=== PATIENT | female | born 1945 | race Caucasian/White ===

== ENCOUNTER 2021-02-20 13:18 | Outpatient (REF) | payer MEDICARE, SELFPAY ==
--- NOTE | ~2021-02-20 | MM_ITS ---
EXAMINATION: MM SCREENING DIGITAL BREAST TOMOSYNTHESIS, BILATERAL CLINICAL INFORMATION: Screening. Asymptomatic. The lifetime risk of breast cancer based on the Tyrer-Cuzick Model is 2%. COMPARISON: Mammography: 01/21/2020, and prior exams dating back to 08/03/2013 TECHNIQUE: Digital breast tomosynthesis is performed in both the craniocaudal and mediolateral oblique views along with computer-aided detection (CAD). Synthesized 2D images are generated from the tomosynthesis. FINDINGS: There are scattered areas of fibroglandular density (ACR BI-RADS breast composition Category b). There is no developing density or interval mass or architectural abnormality. Parenchymal asymmetries upper and outer left breast are similar to prior exams. There are scattered bilateral round and probable dermal calcifications again seen. The axilla are unremarkable. MM/MM tomosynthesis screening BI IMPRESSION: No significant changes from prior exams. ASSESSMENT: BI-RADS 2: Benign RECOMMENDATION: Routine annual mammography screening. This patient's information was entered into a reminder system with a target due date for their next mammogram.
== END 2021-02-20 13:19 | disposition home or self-care (01) ==
LOC: HO.MAMMO 13:18
PROVIDERS: PCP Registered Nurse; Visit Provider Registered Nurse
DX: Z12.31 Encounter for screening mammogram for malignant neoplasm of breast (principal)
CPT/HCPCS: 77063; 77067

== ENCOUNTER 2021-07-17 10:52 | Outpatient (REF) | payer MEDICARE, SELFPAY ==
--- NOTE | ~2021-07-17 | MM_ITS ---
EXAMINATION: BONE DENSITOMETRY CLINICAL INDICATION: Menopausal state. COMPARISON: Baseline BD dated 01/03/2019. TECHNIQUE: Using a [employer] DXA System (software version: 13.1) manufactured by [employer], dual-energy x-ray absorptiometry was performed of the lumbar spine and left hip. The images are of good technical quality. Summary results are attached. FINDINGS: AP SPINE L1-L4: Current: BMD 1.097 g/cm2, Z-score 0.9, T-score -0.7, normal, 3.8% increase from baseline (<5% change is not significant). Baseline: BMD 1.057 g/cm2. LEFT FEMUR, NECK: Current: BMD 0.717 g/cm2, Z-score -0.4, T-score -2.3, osteopenia. Baseline: BMD 0.703 g/cm2. LEFT FEMUR, TOTAL: Current: BMD 0.724 g/cm2, Z-score -0.5, T-score -2.2, osteopenia, 1.9% decrease from baseline (<5% change is not significant). Baseline: BMD 0.738 g/cm2. IDENTIFIED RISK FACTORS: Menopause. HISTORY OF FRACTURE: None listed. MEDICATIONS: Calcium supplements or multivitamin, vitamin D. MM/XR DEXA axial skeleton IMPRESSION: 1. DIAGNOSIS: Osteopenia based on the lowest T-score value of -2.3 in the femoral neck applying World Health Organization criteria. 2. 10-YEAR FRACTURE RISK PREDICTION, FRAX: Major osteoporotic fracture (clinical spine, forearm, hip or shoulder) 15.9%. Hip fracture 4.9%. 3. Treatment Recommendations: NOF guidelines recommend consideration for treatment in postmenopausal women and men age 50 and older presenting with the following: -A hip or vertebral (clinical or morphometric) fracture. -T-score less than or equal to -2.5 at the femoral neck or spine after appropriate evaluation to exclude secondary causes. -Low bone mass at the hip or spine and a 10-year fracture probability by FRAX of greater than or equal to 3% for hip fracture or greater than or equal to 20% for major osteoporotic fracture based on the [place] adapted WHO algorithm. 4. Other Recommendations: All treatment decisions require clinical judgment and consideration of individual patient factors, including patient preferences, comorbidities, previous drug use, risk factors not captured in the FRAX model (e.g. frailty, falls, vitamin D deficiency, increased bone turnover, interval significant decline in bone density) and possible under or overestimation of fracture risk by FRAX. Additional medical evaluation for secondary cause of low bone mineral density may be appropriate. FUTURE SCAN RECOMMENDATION: People with diagnosed cases of osteoporosis or at high risk for fracture should have regular bone mineral density tests. For patients eligible for Medicare, routine testing is allowed once every 2 years. The testing frequency can be increased to one year for patients who have rapidly progressing disease, those who are receiving or discontinuing medical therapy to restore bone mass, or have additional risk factors.
== END 2021-07-17 10:53 | disposition home or self-care (01) ==
LOC: HO.MAMMO 10:52
PROVIDERS: Visit Provider Registered Nurse
DX: Z13.820 Encounter for screening for osteoporosis (principal); Z78.0 Asymptomatic menopausal state; M85.80 Other specified disorders of bone density and structure, unspecified site; Z79.899 Other long term (current) drug therapy
CPT/HCPCS: 77080

== ENCOUNTER 2022-02-22 10:44 | Outpatient (REF) | payer MEDICARE, SELFPAY ==
--- NOTE | ~2022-02-22 | MM_ITS ---
EXAMINATION: MM SCREENING DIGITAL BREAST TOMOSYNTHESIS, BILATERAL CLINICAL INFORMATION: Screening. Asymptomatic. The lifetime risk of breast cancer based on the Tyrer-Cuzick Model is 2%. COMPARISON: Mammography: 02/20/2021, 01/21/2020, 01/03/2019, 12/13/2017 TECHNIQUE: Digital breast tomosynthesis is performed in both the craniocaudal and mediolateral oblique views along with computer-aided detection (CAD). Synthesized 2D images are generated from the tomosynthesis. FINDINGS: There are scattered areas of fibroglandular density (ACR BI-RADS breast composition Category b). Parenchymal pattern is similar to prior studies. Scattered minor asymmetries are stable. No developing density or architectural abnormality. No abnormal calcifications. Scattered round and dermal calcifications are again noted. No significant changes. MM/MM tomosynthesis screening BI IMPRESSION: No mammographic evidence of malignancy. ASSESSMENT: BI-RADS 2: Benign RECOMMENDATION: Routine annual mammography screening. This patient's information was entered into a reminder system with a target due date for their next mammogram.
== END 2022-02-22 10:45 | disposition home or self-care (01) ==
LOC: HO.MAMMO 10:44
PROVIDERS: Visit Provider Registered Nurse
DX: Z12.31 Encounter for screening mammogram for malignant neoplasm of breast (principal)
CPT/HCPCS: 77063; 77067

== ENCOUNTER 2023-03-08 11:07 | Outpatient (REF) | payer MEDICARE, SELFPAY | END 2023-03-08 11:08 | disposition home or self-care (01) | LOC: HO.MAMMO 11:07 | PROVIDERS: PCP Nurse Practitioner Family; Visit Provider Nurse Practitioner Family | DX: Z12.31 Encounter for screening mammogram for malignant neoplasm of breast (principal) | CPT/HCPCS: 77063; 77067 ==

== ENCOUNTER → 2023-03-08 11:15 | Outpatient (BNV) | payer MEDICARE, SELFPAY | PROVIDERS: PCP Nurse Practitioner Family; Visit Provider Radiology Diagnostic Radiology | DX: Z12.31 Encounter for screening mammogram for malignant neoplasm of breast (principal) | CPT/HCPCS: 77063; 77067 ==

== ENCOUNTER 2024-03-14 11:58 | Outpatient (REF) | payer MEDICARE, SELFPAY ==
--- NOTE | ~2024-03-14 | MM_ITS ---
EXAMINATION: MM SCREENING DIGITAL BREAST TOMOSYNTHESIS, BILATERAL CLINICAL INFORMATION: Screening. Asymptomatic. COMPARISON: Mammography: Comparison is made with available priors TECHNIQUE: Digital breast mammography with tomosynthesis is performed in both the craniocaudal and mediolateral oblique views along with computer-aided detection (CAD). FINDINGS: There are scattered areas of fibroglandular density (ACR BI-RADS breast composition Category b). There are no significant masses, abnormal calcifications, or other abnormalities. MM/MM tomosynthesis screening BI IMPRESSION: No mammographic evidence of malignancy. ASSESSMENT: BI-RADS BI-RADS 1 - Negative RECOMMENDATION: Routine annual mammography screening. 1 year F/U This examination should not preclude the clinical evaluation of a suspicious palpable abnormality. This patient's information was entered into a reminder system with a target due date for their next mammogram. Electronically signed by: Xi Snell DO 03/23/2024 01:40 PM SAUL
== END 2024-03-14 11:59 | disposition home or self-care (01) ==
LOC: HO.MAMMO 11:58
PROVIDERS: PCP Nurse Practitioner Family; Visit Provider Nurse Practitioner Family
DX: Z12.31 Encounter for screening mammogram for malignant neoplasm of breast (principal)
CPT/HCPCS: 77063; 77067

== ENCOUNTER → 2024-03-14 12:15 | Outpatient (BNV) | payer MEDICARE, SELFPAY | PROVIDERS: PCP Nurse Practitioner Family; Visit Provider Internal Medicine | DX: Z12.31 Encounter for screening mammogram for malignant neoplasm of breast (principal) | CPT/HCPCS: 77063; 77067 ==

== ENCOUNTER 2025-03-20 11:45 | Outpatient (REF) | payer MEDICARE, SELFPAY ==
--- OUTSIDE RECORDS SUMMARY | 2025-03-20 14:38 | XMS_ITS | Encounter Summary ---
Author Organization [facility] Address [address] [facility] [address] [place] [id number] Phone Care Team Providers Care Latent Fingerprint Examiner Name Role Phone Milla Siu CNP Primary Care Provid er Reason for Visit * Reason Comments Medication Refill Encounter Details Date Type Department Care Team (Late st Contact Info) Description 03/18/2025 Refill [facility] [address] [place] [address] Milla Siu, PHAM [address] [facility] [place] [address] [email or web address] Medication Refill Social History Tobacco Use Types Packs/Day Years Used Date Smoking Tobacco: Never Smokeless Tobacco: Never Alcohol Use Standard Drinks/Week Comments Not Currently 0 (1 standard drink = 0.6 oz pur e alcohol) rarely Child or Family Care Answer Date Record ed Do you have problems with on e of the following making it difficult for you to work, study, or receive health care? No 01/17/2025 Education Answer Date Recorded Are you interested in more education? Not on cora e 09/03/2022 Are you concerned about learning? Not on file 09/03/2022 No 09/03/2022 No 09/03/2022 Food Answer Date Recorded Within the past 6 months we worried whether our food would run out before we got money to buy more. Sometimes True 09/11/2 025 Within the past 6 months the food we bought just didn't last and we didn't have enough money to get more. Never True 01/07 Residential Stability Answer Date Recor ded What is your housing situation today? I have dora kruger 01/17/2025 How many times have you move d in the past 12 months? Zero (I did not move) 01/17/2025 Paying for Meds Answer Date Recorded Do you have trouble paying for medicines? No 01/17/2025 Paying Utility Bills Answer Date Record ed Do you have trouble paying your heating or elect ricity bill? No 01/17/2025 Transportation Answer Date Recorded Has the lack of transportati on kept you from medical appointments or from getting medications? No 01/17/2025 Digital Access Answer Date Recorded No 01/17/2025 Yes 01/17/2025 Do you have reliable internet access at home? Ye s 01/17/2025 Do you have a device (e.g., phone, tablet, computer) with a working camera? Yes 01/17/2025 Intimate Partner Violence Answer Date R ecorded Denied Basic Needs Not on file 01/17/2025 In the past 12 months have y ou been in a relationship with a person who hurts, threatens, or tries to control you? No 01/17/2025 Worried food would run out Not on file 01/17 In the past 12 months have y ou been in a relationship with a person who hurts, threatens, or tries to control you? No 01/17/2025 Comments No Sex and Gender Information Value Date Recorded Sex Assigned at Female 09/17/2021 8:06 PM EDT Legal Sex Female 11:37 AM EDT Gender Identity Female 09/17/2021 8:06 PM EDT Sexual Orientation Straight 09/17/2021 8: 06 PM EDT documented as of this encounter Progress Notes * Jazmin Nelson MA - 03/18/2025 1:50 PM EST Rx Care Gap Status - Instructions for Clinical Staff (prescriber discretion applies): > Mismatch review guide > N/a - No action needed Visit Info Last visit: 01/17/2025 Milla Siu CNP - Family Medicine [facility] > Requested f/u: Return in about 1 year (around 01/17/2026) for Annual physical. Upcoming visit: 01/23/2026 Milla Siu CNP - Family Medicine [facility] ACTIONS TAKEN BY Jazmin Nelson MA - Criteria met. Cholesterol Medication Rx Protocol - ezetimibe Criteria met; renew for up to 12 months. Visit in the past 14 months: Yes Clinical criteria: - Lipid panel within past year: Yes Lab Results Component Value Date LDL 184 (H) 01/17/2025 HDL 58 01/17/2025 CARDIAC RISK RATIO 4.4 01/17/2025 TRIGLYCERIDES 69 01/17/2025 CHOLESTEROL 256 (H) 01/17/2025 documented in this encounter Plan of Treatment Upcoming Encounters Date Type Department Care Team (Late st Contact Info) Description 01/23/2026 10:30 AM EDT Office Visit [facility] [address] [place] [address] Dr [place] [phone] Milla Siu CNP [address] [facility] [place] [address] [email or web address] documented as of this encounter Visit Diagnoses Diagnosis Mixed hyperlipidemia documented in this encounter Additional Health Concerns Assessment Noted Time PHQ-2 Depression Total Score: 0 01/18/20 25 10:19 AM EDT documented as of this encounter Care Teams Latent Fingerprint Examiner Relationship Specialty Start Date End Date Milla Siu CNP [address] [facility] [place] [address] [email or web address] PCP - General Family Medicine 12/20/22 documented as of this encounter Additional Source Comments The information contained in this document represents components of the legal health record. It is not the complete legal health record.[facility]
--- OUTSIDE RECORDS SUMMARY | 2025-03-20 14:38 | XMS_ITS | Encounter Summary ---
Author Organization [facility] Address [address] [facility] [address] [place] [address] Phone Care Team Providers Care Napkin Band Wrapper Name Role Phone AliciaDelia bourgeois [facility] Primary Care Provider Milla Siu PLANT ATTENDANT Primary Care Provid er Encounter Details Date Type Department Care Team (Late st Contact Info) Description 12/29/2021 Procedure Pass [place] Admitting Dept - Virtual Department [address] [place] [address] Social History Tobacco Use Types Packs/Day Years Used Date Smoking Tobacco: Never Smokeless Tobacco: Never Alcohol Use Standard Drinks/Week Comments Never 0 (1 standard drink = 0.6 oz pur e alcohol) Comments No Sex and Gender Information Value Date Recorded Sex Assigned at Female 09/17/2021 8:06 PM EDT Legal Sex Female 11:37 AM EDT Gender Identity Female 09/17/2021 8:06 PM EDT Sexual Orientation Straight 09/17/2021 8: 06 PM EDT documented as of this encounter Plan of Treatment Upcoming Encounters Date Type Department Care Team (Late Contact Info) Description 01/23/2026 10:30 AM EDT Office Visit [facility] [address] [place] [address] [place] [address] Milla Siu, PHAM [address] [place] [address], [address] [place] [address] [email or web address] documented as of this encounter Visit Diagnoses Not on filedocumented in this encounter Additional Health Concerns Assessment Noted Time PHQ-2 Depression Total Score: 0 06/09/19 22 10:03 AM EST documented as of this encounter Care Teams Napkin Band Wrapper Relationship Specialty Start Date End Date Delia Schmidt CNP [address] [place] [address] [email or web address] PCP - General Internal Medicine 05/26/20 12/19/22 Milla Siu CNP [address] [place] [address], [address] [place] [address] PCP - General Family Medicine 12/20/22 documented as of this encounter Additional Source Comments The information contained in this document represents components of the legal health record. It is not the complete legal health record.[facility]
--- OUTSIDE RECORDS SUMMARY | 2025-03-20 14:38 | XMS_ITS | Clinical Summary ---
Author Organization [facility] Address [address] [facility] [address] [place] [id number] Phone Care Team Providers Care [employer] Worker Name Role Phone Milla Siu Darcy [facility] Primary Care Provid er Allergies Active Allergy Reactions Criticality Noted Date Comments Codeine Dizziness,Nausea and/or Vomiting Medications coenzyme Q10 100 mg capsule Take 100 mg by mouth daily. Active calcium carbonate/vitamin D3 (CALCIUM+D ORAL) Take 1,200 mg by mouth daily. Active TURMERIC ORAL Take 450 mg by mouth daily. 2 daily Active MULTIVITAMIN ORAL Take by mouth daily. Active docusate sodium (COLACE ORAL) Take 100 mg by mouth nightly at bedtime. 2 daily Active MAGNESIUM ORAL Take 450 mg by mouth daily. Active microfibrillar collagen (INSTAT) powder Apply topically as needed. Active calcium carbonate (TUMS ORAL) Take by mouth. prn Active ibuprofen (ADVIL,MOTRIN) 200 MG tablet Take 600 mg by mouth 2 (two) times a day as needed for pain (specific location in comments). Active acetaminophen (TYLENOL EXTRA STRENGTH ORAL) Take by mouth. prn Active KRILL OIL ORAL Take 1 capsule by mouth daily. Active aspirin 81 MG EC tablet Take 81 mg by mouth daily. Active colchicine (COLCRYS) 0.6 mg tabletIndications :Pain in joints of both feet Take 2 tabs po at the first sign of gout flare, than 1 tab po one hour later. Then take 1 tab po daily until the flare resolves. 10 tablet 1 06/10/19 23 Active APPLE CIDER VINEGAR ORAL Take by mouth. Active ezetimibe (ZETIA) 10 mg tabletIndications :Mixed hyperlipidemia TAKE 1 TABLET(10 MG) BY MOUTH DAILY 90 tablet 3 03/18/20 25 Active ezetimibe (ZETIA) 10 mg tabletIndications :Mixed hyperlipidemia TAKE 1 TABLET(10 MG) BY MOUTH DAILY 90 tablet 3 03/26/20 24 025 Discontinued Active Problems Problem Noted Date Diagnosed Date Chronic pain of left knee 01/17/2025 Benign paroxysmal positional vertigo 01/13/2024 Assessment & Plan (01/13/2024 1:47 PM EDT): She experiences vertigo when lying down or getting up quickly, likely due to vertigo. Orthostasis is possible but less likely due to her spinning rather than lightheaded sensation. She was provided with a handout on exercises for vertigo. If necessary, she can take [id number] antihistamines such as Dramamine. If symptoms persist or worsen, physical therapy may be considered. I advised against horseback riding, driving, bathing or swimming alone, or climbing/working at heights or with hazardous materials while symptomatic. Constipation 01/13/2024 Assessment & Plan (01/13/2024 1:50 PM EDT): She experiences occasional constipation and takes Colace, which sometimes helps. Reviewed the importance of adequate fiber intake and hydration. She was advised to try senna if Colace does not alleviate her constipation. Joint stiffness 01/13/2024 Assessment & Plan (01/13/2024 1:54 PM EDT): Symptoms of stiffness and pressure especially in the lower back and legs, which intensify with prolonged sitting or lying down, are likely due to underlying osteoarthritis. She was advised to take breaks during long periods of sitting or lying down and to continue walking and other weight-bearing exercises to maintain bone health. If necessary, she can take Aleve or ibuprofen with food, but should avoid frequent use due to past issues with Aleve. Osteopenia 12/30/2022 Assessment & Plan (01/13/2024 1:48 PM EDT): Her bone density scan from 07/2021 showed osteopenia in her hip, but her spine was normal. Lumbar spine t-score -0.7, left femoral neck t-score -2.3, left total femur t-score -2.2. She was recommended to continue walking and other weight-bearing exercises to maintain bone health. Continues on calcium and vitamin d supplements. Another bone density scan can be considered next year, declines presently. Assessment & Plan (12/30/2022 10:58 AM EDT): Osteopenic per DXA 07/17/21. Lumbar spine t-score -0.7, left femoral neck t-score -2.3, left total femur t-score -2.2. No hx of fracture. Menopausal. Continues on calcium and vitamin d supplements. Continue regular weightbearing activity. Consider repeat bone density screening in 2-3 yrs, due 2024. Prediabetes 12/30/2022 Assessment & Plan (01/13/2024 1:49 PM EDT): Her last A1c was 6.1, indicating a prediabetic state. Lab orders will be placed to check her blood sugar levels. She was encouraged to maintain a healthy diet and engage in regular exercise. Assessment & Plan (12/30/2022 11:10 AM EDT): Last FBG 101, in prediabetic range. Prior FBG normal at 90. Will continue to monitor. Discussed dietary changes limit simple carbs and avoid concentrated sweets. Class 1 obesity with body ma ss index (BMI) of 31.0 to 31.9 in adult 12/30/2022 Assessment & Plan (12/30/2022 11:39 AM EDT): BMI 32.21. Weight appears stable. Will r/o underactive thyroid, no prior TSH in record. Continue diet and lifestyle efforts. Uterine leiomyoma 10/04/2021 Overview (10/04/2021): 2 seen on ultrasound done for pain, each no more than 2 cm. Benign finding no follow-up needed History of anemia 02/05/2020 Assessment & Plan (12/30/2022 11:05 AM EDT): Hx of single episode of anemia of unknown cause. Had an EGD and colonoscopy in 2015 w/o significant findings. Last CBC WNL, no recurrence. Assessment & Plan (12/22/2021 2:41 PM EDT): To the preop with history of anemia possibly due to the polyps, will obtain a CBC and Chem-7 for preop. Assessment & Plan (02/05/2020 6:07 AM EDT): No signs of blood loss. Due for routine repeat. Vitamin D deficiency 02/05/2020 Assessment & Plan (01/13/2024 1:54 PM EDT): Continues on dietary supplement, check level. Assessment & Plan (12/30/2022 10:59 AM EDT): Hx of, last vitamin d level normal: 40 (02/04/2020). Continue dietary supplement. Assessment & Plan (06/10/2020 7:19 AM EST): Continue supplementation Assessment & Plan (02/05/2020 6:07 AM EDT): Check level today. Hyperlipidemia Assessment & Plan (01/13/2024 1:55 PM EDT): Uncontrolled LDL 174, not at goal <130. Taking daily aspirin 81mg. Intolerant of statins due to myalgias, continues on Zetia. Strong fhx HLD. Continue dietary efforts. Monitor lipids. Assessment & Plan (12/30/2022 11:03 AM EDT): Uncontrolled LDL 179, not at goal <130. 10-yr ASCVD risk calculated at 22%. Taking daily aspirin 81mg. Intolerant of statins due to myalgias, continues on Zetia. Strong fhx HLD. Continue dietary efforts. Will continue to monitor. Assessment & Plan (06/14/2022 2:52 AM EST): Await labs, continue zetia Assessment & Plan (12/22/2021 2:41 PM EDT): Patient is fasting so we will obtain a lipid profile. Low-fat diet reinforced. Assessment & Plan (06/10/2020 7:18 AM EST): Check lipids today. Discussed referral to cardiology to explore PCSK9 inhibitors, declines at this time. Assessment & Plan (02/05/2020 6:08 AM EDT): Longstanding hyperlipidemia. Intolerant to statins. Discussed possibility of PCSK-9 inhibitor use, if qualifies. Limiting factors may be cost and access. Will explore this option with patient and refer to cardiology prn. Resolved Problems Problem Noted Date Diagnosed Date Resolved Date Skin lesion of neck 12/30/2022 01/13/20 Assessment & Plan (01/20/2023 2:34 PM EDT): Pigmented and irregularly shaped skin lesion to right neck. Somewhat pedunculated and soft similar to skin tag but brown and waxy in appearance much more like seborrheic keratosis. Bothersome and irritated, often caught on her clothing or she plays with it absent-mindedly. After obtaining informed consent, the area was prepped with iodine and alcohol swabs. Local anesthesia was obtained with 1% lidocaine. The superficial layers of the lesion were removed by shave biopsy. Lesion appears to have been removed in its entirety at its base. Hemostasis obtained with direct pressure. Clean, dry dressing applied and pt instructed re: wound care and indications for f/u. Specimen sent for dermatopathology. Will follow results. Pt will f/u PRN. Assessment & Plan (12/30/2022 11:16 AM EDT): Pigmented and irregularly shaped skin lesion to right neck. Somewhat pedunculated and soft similar to skin tag but brown and waxy in appearance much more like seborrheic keratosis. Bothersome and irritated, often caught on her clothing or she plays with it absent-mindedly. Interested in seeing dermatology but travel would be a barrier for her. Discussed options, she will do some research and let us know if she would like a referral placed. In the meantime, I believe this lesion would be possible to remove in-office with a shave biopsy, pt in agreement and will schedule when available. Uterine polyp 10/04/2021 06/10/2022 Overview (10/04/2021): two suspected, incidental finding on ultrasound for pain. Family history of endometrial cancer Assessment & Plan (12/22/2021 2:42 PM EDT): Patient is a good surgical candidate for the procedure to remove the 2 polyps suspected. Preop labs CBC and Chem-7 ordered. EKG was done showing normal sinus rhythm no ectopy and no suspicious ischemic findings. No further cardiac assessment necessary, patient can come off of the aspirin 7 days in advance of the procedure. Assessment & Plan (10/04/2021 11:43 PM EDT): On the ultrasound images, there is some fluid outlining these polyps in the endometrial cavity and I advised I do not think there is any additional information to be gained from sonohysterogram. She could have that as an intermediate step if she desired or proceed to hysteroscopic evaluation and removal in the operating room. Given the family history she prefers the latter approach. Recommend preoperative assessment with her primary Pain in joints of both feet 06/10/2020 01/13/2024 Assessment & Plan (06/14/2022 2:53 AM EST): Check uric acid today. Discussed treating next episode as a gout flare. Reviewed colchicine, goals of treatment, potential s/e. She will let me know if taking this med and how it is working for her Assessment & Plan (06/10/2020 7:15 AM EST): Recommend consideration of podiatry evaluation. Declines at this time. Myalgia 06/10/2020 12/30/2022 Elevated CK 02/05/2020 12/30/2022 Assessment & Plan (02/05/2020 6:07 AM EDT): Repeat today. Left Achilles tendinitis Assessment & Plan (02/05/2020 6:07 AM EDT): Will wear supportive boot more regularly. If sx persist she will f/u. Encounters Date Type Department Care Team Description 03/18/[address] [place] [address] Milla Siu CNP Medication Refill 02/14/2025 2:43 PM EDT - 02/14/2025 11:59 PM EDT Hospital Encounter [facility] [address] [place] [address] [place] [address] Milla Siu CNP Discharge Disposition: Home or Self Care 02/12/[address] [place] [address] Milla Siu CNP Results 01/17/2025 11:59 AM EDT - 01/17/2025 11:59 PM EDT Hospital Encounter [facility] [address] [place] [address] [place] [address] Milla Siu CNP Discharge Disposition: Home or Self Care 01/17/2025 10:30 AM EDT Office Visit [address] [place] [address] Milla Siu CNP Encounter for health maintenance examination in adult (Primary Dx); Encounter for screening for depression; Colon cancer screening; Prediabetes; Pure hypercholesterolemi a; Osteopenia of left hip; Chronic pain of left knee; Breast cancer screening by mammogram from Last 3 Months Immunizations Immunization Administration Dates Next Due COVID-19 (Pre-02/28) Pfizer Vaccine, mRNA, PF 07/13/2020,06/22/2020 INFLUENZA, SPLIT VIRUS, TRIVALENT PF 03/12/2015 INFLUENZA, SPLIT VIRUS, TRIV ALENT W/ PRESERVATIVE IM 05/17/2012 Influenza High-Dose Quadriva lent Preservative Free IM 02/08/2020 Influenza High-Dose Trivalen t Preservative Free IM 02/13/2024,02/21/2018,03/17/2016 Influenza Quadrivalent Adjuv anted Preservative Free IM 02/23/2023,03/02/2022,05/04/2021 Influenza Trivalent Adjuvant ed Preservative free IM 03/29/2017 Pneumococcal conjugate PCV20 01/13/2024 Pneumococcal polysaccharide PPSV23 06/09/2021 Family History Medical History Relation Comments Hyperlipidemia Brother Coronary artery disease Father Diabetes Father Hypertension Father Endometrial cancer Mother endometrial a denocarcinoma Hyperlipidemia Mother Hypertension Mother Stroke Mother Hyperlipidemia Sister Breast cancer Neg Hx Colon cancer Neg Hx Relation Status Comments Brother Daughter Alive Father Mother Sister Social History Tobacco Use Types Packs/Day Years Used Date Smoking Tobacco: Never Smokeless Tobacco: Never Tobacco Cessation:Counseling Given: Not Answered Alcohol Use Standard Drinks/Week Comments Not Currently [...] got money to buy more. Sometimes True 025 Within the past 6 months the food we bought just didn't last and we didn't have enough money to get more. Never True 01/07 Residential Stability Answer Date Recor ded What is your housing situation today? I have dora sing 01/17/2025 How many times have you move [...] have reliable internet access at home? Ye mayelin 01/17/2025 Do you have a device (e.g., [...] Orientation Straight 09/17/2021 8: 06 PM EDT Last Filed Vital Signs Vital Sign Reading Time Taken Comments Blood Pressure 121/80 01/17/2025 10:41 AM EDT Pulse 65 01/17/2025 10:41 AM EDT Temperature 36.2 C (97.2 F) 01/17/2025 10:41 AM EDT Respiratory Rate 16 06/10/2022 9:45 AM EST Oxygen Saturation 93% 01/17/2025 10:41 AM EDT Inhaled Oxygen Concentration - - Weight 66.7 kg (147 lb) 01/17/2025 10:41 AM EDT Height 144.9 cm (4' 9.05 ) 01/17/2025 10:41 AM E DT Body Mass Index 31.76 01/17/2025 10:41 AM EDT Plan of Treatment Upcoming Encounters Date Type Department Care Team (Late st Contact Info) Description 01/23/2026 10:30 AM EDT Office Visit [facility] [address] [place] [address] [place] [address] Milla Siu, PHAM [address] [facility], [address] [place] [address] Health Maintenance Due Date Last Done Comments Adult Td,Tdap Booster 1945 ZOSTER VACCINES (1 of 2) 08/16/1993 RSV VACCINE (1 - 1-dose 75+ series) 08/16/2018 INFLUENZA VACCINE (#1) 2024 , 02/23/2023, 03/02/2022, Additional history exists COVID-19 VACCINE ( season) 2025 03/19/2022, 02/24/2021, 07/13/2020, Additional history exists DEPRESSION SCREENING 01/17/2026 01/17/2025 PNEUMOCOCCAL VACCINES (50+ years) Completed 01/13/2024, 06/09/2021 OSTEOPOROSIS SCREENING INITIAL (ONE-TIME) Completed 01/17/2025, 07/17/2021 HEPATITIS A VACCINES Aged Out No long er eligible based on patient's age to complete this topic HIB VACCINES Aged Out No longer eligi ble based on patient's age to complete this topic IPV VACCINES Aged Out No longer eligi ble based on patient's age to complete this topic MENINGOCOCCAL VACCINES (ACWY) Aged Out No longer eligible based on patient's age to complete this topic MENINGOCOCCAL VACCINES (B) Aged Out N o longer eligible based on patient's age to complete this topic Medical Devices Not on file Procedures Procedure Name Priority Date/Time Associated Diagnosis Comments BASIC METABOLIC PANEL (BMP) Routine 02/14/2025 2:52 PM EDT Hyperkalemia COLOGUARD ([employer]) Routine 02/05/2025 9:45 AM EDT Colon cancer screening LIPID PANEL Routine 01/17/2025 12:20 PM EDT Pure hypercholesterolemia COMPREHENSIVE METABOLIC PANEL (CMP) Routine 01/17/2025 12:20 PM EDT Prediabetes Pure hypercholesterolemia HEMOGLOBIN A1C Routine 01/17/2025 12:20 PM EDT Prediabetes BI MAMMOGRAM SCREENING (BILATERAL) Routine 01/17/2025 11:10 AM EDT Breast cancer screening by mammogram BD DXA MONITORING Routine 01/17/2025 11:09 AM EDT Osteopenia of left hip from Last 3 Months Results * (ABNORMAL) Basic metabolic panel (02/14/2025 2:52 PM EDT) SODIUM 141 133 - 146 mmol/L [facility] CHLORIDE 106 96 - 108 mmol/L [facility] POTASSIUM 4.3 3.3 - 5.1 mmol/L [facility] CO2 24 21 - 35 mmol/L [facility] BUN 27(H) 6 - 19 mg/dL [facility] CREATININE 0.60 0.5 - 1.5 mg/dL [facility] GLUCOSE 91 70 - 99 mg/dL [facility] CALCIUM 8.9 8.4 - 10.3 mg/dL [facility] EGFR 90 >59 mL/min/1.7 3m2 [facility] Comment:Estimated glomerular filtration rate calculated using the CKD-EPI refit equation. ANION GAP 15 10 - 20 mmol/L [facility] Blood 02/14/2025 2:52 PM EDT 02/14/2025 2:54 PM EDT Milla Darcy Siu [employer] LAB BLOOD BKR ORDERA BLES Final Result [address] [address] * COLOGUARD ([employer]) (02/05/2025 9:45 AM EDT) Pathologist [facility] Cologuard Results Negative Negative 025 5:27 AM EDT [employer] (CLIA #:[id number]) Comment: The Cologuard (TM) test was performed on this specimen. NEGATIVE TEST RESULT. A negative Cologuard result indicates a low likelihood that a colorectal cancer (CRC) or advanced adenoma (adenomatous polyps with more advanced pre-malignant features) is present. The chance that a person with a negative Cologuard test has a colorectal cancer is less than 1 in 1500 (negative predictive value >99.9%) or has an advanced adenoma is less than 5.3% (negative predictive value 94.7%). These data are based on a prospective cross-sectional study of 10,000 individuals at average risk for colorectal cancer who were screened with both Cologuard and colonoscopy. (Shar Webber al, N Engl J Med 2014;370(14):1286- 1297) The normal value (reference range) for this assay is negative. COLOGUARD RE-SCREENING RECOMMENDATION: Periodic colorectal cancer screening is an important part of preventive healthcare for asymptomatic individuals at average risk for colorectal cancer. Following a negative Cologuard result, the [place] [employer] Society and U.S. Multi-Society Task Force screening guidelines recommend a Cologuard re-screening interval of 3 years. References: [place] [employer] Guideline for Colorectal Cancer Screening: https://www.cancer.org/cancer/fyfak-szumoq-rirjvo/uilmhocow-aaacvlrqi-hevhvql/ac s-rec ommendations.html.; Sy FRAZIER, Jill THOMPSON, Jose Maria DavisK, Colorectal Cancer Screening: Recommendations for Physicians and Patients from the U.S. Multi-Society Task Force on Colorectal Cancer Screening , Am J Gastroenterology 2017; 112:3089-6379. TEST DESCRIPTION: Composite algorithmic analysis of stool DNA-biomarkers with hemoglobin immunoassay. Quantitative values of individual biomarkers are not reportable and are not associated with individual biomarker result reference ranges. Cologuard is intended for colorectal cancer screening of adults of either sex, 45 years or older, who are at average-risk for colorectal cancer (CRC). Cologuard has been approved for use by the U.S. FDA. The performance of Cologuard was established in a cross sectional study of average-risk adults aged 50-84. Cologuard performance in patients ages 45 to 49 years was estimated by sub-group analysis of near-age groups. Colonoscopies performed for a positive result may find as the most clinically significant lesion: colorectal cancer [4.0%], advanced adenoma (including sessile serrated polyps greater than or equal to 1cm diameter) [20%] or non- advanced adenoma [31%]; or no colorectal neoplasia [45%]. These estimates are derived from a prospective cross-sectional screening study of 10,000 individuals at average risk for colorectal cancer who were screened with both Cologuard and colonoscopy. (Shar Mccord, N Engl J Med 2014;370(14):3170-3187.) Cologuard may produce a false negative or false positive result (no colorectal cancer or precancerous polyp present at colonoscopy follow up). A negative Cologuard test result does not guarantee the absence of CRC or advanced adenoma (pre-cancer). The current Cologuard screening interval is every 3 years. ([place] [employer] Society and U.S. Multi-Society Task Force). Cologuard performance data in a 10,000 patient pivotal study using colonoscopy as the reference method can be accessed at the following location: www.Setgo/results. Additional description of the Cologuard test process, warnings and precautions can be found at www.cologApellis Pharmaceuticalsrd.com. Stool (Per Rectum) 02/05/2025 9:45 AM EDT 02/06/2025 10:28 AM EDT Milla Siu [employer]ER BODY FLUIDS AND STOO LS ORDERABLES Final Result [employer] (CLIA #:[id number]) [address] [place] [id number] [phone] * (ABNORMAL) Comprehensive metabolic panel (01/17/2025 12:20 PM EDT) SODIUM 141 133 - 146 mmol/L [facility] POTASSIUM 5.4(H) 3.3 - 5.1 mmol/L [facility] CHLORIDE 105 96 - 108 mmol/L [facility] CO2 26 21 - 35 mmol/L [facility] BUN 26(H) 6 - 19 mg/dL [facility] CREATININE 0.70 0.5 - 1.5 mg/dL [facility] GLUCOSE 98 70 - 99 mg/dL [facility] ALBUMIN 3.9 3.9 - 4.8 g/dL [facility] TOTAL PROTEIN 7.7 6.5 - 8.0 g/dL [facility] CALCIUM 9.5 8.4 - 10.3 mg/dL [facility] ALKALINE PHOSPHATASE 56 39 - 117 U/L [facility] TOTAL BILIRUBIN 0.5 0.0 - 1.2 mg/dL [facility] AST 19 0 - 37 U/L [facility] ALT 15 0 - 40 U/L [facility] GLOBULIN 3.8 1 - 4.8 g/dL [facility] EGFR 87 >59 mL/min/1.7 3m2 [facility] Comment:Estimated glomerular filtration rate calculated using the CKD-EPI refit equation. ANION GAP 15 10 - 20 mmol/L [facility] Blood 01/17/2025 12:2 0 PM EDT 01/17/2025 12:31 PM EDT Milla Tvaeras [facility] LAB BLOOD BKR ORDERA BLES Final Result Performing Organization Address City/[facility]/ZIP Co de Phone Number [address] [address] * (ABNORMAL) Hemoglobin A1c (01/17/2025 12:20 PM EDT) HEMOGLOBIN A1C 6.0(H) 4.3 - 5.8 % [facility] Blood 01/17/2025 12:2 0 PM EDT 01/17/2025 12:[address]A BLES Final Result Performing Organization Address City/[facility]/ZIP Co de Phone Number [address] [address] * (ABNORMAL) Lipid panel (01/17/2025 12:20 PM EDT) HDL 58 mg/dL [facility] Comment: Interpretation <40 mg/dL: Low HDL cholesterol (major risk factor for CHD) Greater than or equal to 60 mg/dL: High HDL cholesterol ( negative risk factor for CHD) HDL - cholesterol is affected by a number of factors, e.g. smoking, excerise, hormones, sex and age. CHOLESTEROL 256(H) 0 - 240 mg/dL [facility] TRIGLYCERIDES 69 30 - 160 mg/dL [facility] LDL 184(H) 50 - 129 mg/dL [facility] Comment: LDL levels in terms of risk for coronary heart disease: <100 mg/dL: Optimal 100-129 mg/dL: Near or above optimal 130-159 mg/dL: Borderline high 160-189 mg/dL: High >190 mg/dL: Very High CARDIAC RISK RATIO 4.4 3.3 - 4.4 C [facility] Blood 01/17/2025 12:2 0 PM EDT 01/17/2025 12:32 PM EDT us Milla Siu [facility] LAB BLOOD BKR ORDERA BLES Final Result [facility] [address] [place] [address] * DXA Screening (07/17/2021) Anatomical Region Laterality Modality Bone Density Bone Density us Delia Mcintosh Brayan [employer] IMG BD BONE DENSITY DE XA Edited Result - Final from Last 3 Months or Most Recently Relevant to Health Maintenance [place] [address] [place] [address] MEDICARE PPO [address] [address] [place] [address] MEDICARE PPO [address] [address] [place] [address] [address] [place] [address] [address] [place] [address] [place] [address] MED[address]PO [address] [place] [address] [place] [address] MEDICARE PPO BLUE REPLACEMENT [place] BLUE REPLACEMENT Care Teams [employer] Worker Relationship Specialty Start Date End Date Milla Siu CNP [address] [place] [address], [address] [place] [address] [email or web address] PCP - General Family Medicine 12/20/22 Additional Source Comments The information contained in this document represents components of the legal health record. It is not the complete legal health record.[facility]
== END 2025-03-20 11:46 | disposition home or self-care (01) ==
LOC: HO.MAMMO 11:45
PROVIDERS: PCP Nurse Practitioner Family; Visit Provider Nurse Practitioner Family
DX: Z12.31 Encounter for screening mammogram for malignant neoplasm of breast (principal)
CPT/HCPCS: 77063; 77067

== ENCOUNTER → 2025-03-20 12:00 | Outpatient (BNV) | payer MEDICARE, SELFPAY | PROVIDERS: PCP Nurse Practitioner Family; Visit Provider Radiology Body Imaging | DX: Z12.31 Encounter for screening mammogram for malignant neoplasm of breast (principal) | CPT/HCPCS: 77063; 77067 ==